=== PATIENT | female | born 1975 | race Two or more races ===

== ENCOUNTER → 2018-11-01 | Outpatient (CLI) | payer BC ==
[~2018-11-01] MED LIST: LEVO50TA5 PO
--- NOTE | 2018-11-01 10:53 | RAD ---
3 view study of the left knee Clinical indications: Fell on left knee 2 days ago. Continued left knee pain. FINDINGS: No acute fracture or dislocation or lytic process is seen. There is moderate degenerative spurring and mild joint space narrowing of the medial tibiofemoral joint compartment. No left knee joint effusion is seen. IMPRESSION: No acute fracture. Electronically signed by: Gurmeet White MD (11/01/2018 10:50 AM) [id number]
== END | disposition home or self-care (01) ==
LOC: RAD 08:01 → MERGE 08:01
PROVIDERS: ATTEND Physician Assistant
DX: M76.892 Other specified enthesopathies of left lower limb, excluding foot (principal)
CPT/HCPCS: 73560

== ENCOUNTER 2020-07-08 11:48 | Emergency (ER) | payer BC ==
[~2020-07-08] VITALS: Ht 167.6 cm; Wt 102.0 kg
--- NOTE | 2020-07-08 12:22 | PHYS DOC ---
Past History Past Medical History: No Pertinent History Past Surgical History: Gastric Bypass, Hysterectomy, Knee Replacement, Other Additional Past Surgical Histo: Thyroid. bilaterla breast. Alcohol Use: None Adult General Chief Complaint Chief Complaint: SHORTNESS OF BREATH HPI HPI Patient is a 45-year-old female presents emergency department with complaints of having a fever of 101 oral temp last night along with feeling chest pressure with her heart beating fast, patient states that she thinks her heart was beating fast because she was having a possible panic attack. Patient states that she has had panic attacks in the past but has not been treated for them. Patient states this morning her chest pressure and shortness of breath have been relieved. Patient reports that she tested positive for the Covid virus on 17 June from a [facility] test and then again tested positive for the COVID- 19 virus last Monday at the local urgent care center. Patient reports that she is requiring a work excuse. Patient also states that she has lost sense of taste and smell since yesterday has chills and reported fever with body aches. Patient denies any nausea vomiting diarrhea or constipation. Patient denies any problems with urination, denies vaginal discharge or STI concerns. Patient reports that she had a hysterectomy in 2017. A partial thyroidectomy in 2006, and a double mastectomy 2017. Patient reports she takes 10 mg Ambien nightly for sleep and 75 mcg of levothyroxine daily. Patient states that she does not feel like she needs to be in the hospital as she does not feel that bad, patient states her main concern of being the emergency department today is to obtain a work excuse. 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 Patient reports being a non-smoker does not use illicit drugs, has an occasional glass of wine on the weekends. Patient denies anybody else in her home having the same symptoms that she. Review of Systems Review of Systems 14 body systems of review of systems have been reviewed. See HPI for pertinent positives and negative responses, otherwise all other systems are negative, nonpertinent or noncontributory. Family History Family History Patient denies any significant medical family history, states both her mother and father are healthy Current Medications Current Medications 75 mcg levothyroxine p.o. daily, 10 mg Ambien nightly for sleep. Allergies Allergies Patient denies any allergies to medications, denies seasonal, food, or environmental allergies. Allergies Coded Allergies Type Severity Reaction Last Updated Verified No Known Drug Allergies 11/07/13 No Physical Exam Physical Exam Constitutional: Well developed, well nourished, no acute distress, non-toxic appearance. HENT: Normocephalic, atraumatic, bilateral external ears normal, oropharynx moist, no oral exudates, nose normal. Eyes: PERRLA, EOMI, conjunctiva normal, no discharge. Neck: Normal range of motion, no tenderness, supple, no stridor. Cardiovascular:Heart rate regular rhythm, no murmur, heart sounds S1-S2. Lungs & Thorax: Bilateral breath sounds clear to auscultation all lung manning. Abdomen: Bowel sounds normal, soft, no tenderness, no masses, no pulsatile masses. Skin: Warm, dry, no erythema, no rash. Back: No tenderness, no CVA tenderness. Extremities: No tenderness, no cyanosis, no clubbing, ROM intact, no edema. Neurologic: Alert and oriented X 3, normal motor function, normal sensory function, no focal deficits noted. Psychologic: Affect normal, judgement normal, mood normal. Current Patient Data Vital Signs Vital Signs Date Time Temp Pulse Resp B/P (MAP) Pulse Ox O2 Delivery O2 Flow Rate FiO2 07/08/20 11:56 98.5 90 16 126/85 (99) 100 Room Air EKG EKG EKG performed at 1248 by house respiratory therapist, shows a normal sinus rhythm without ectopy heart rate 84 bpm regular rate and rhythm with MN interval 0.140, QTc interval 0.448, no acute STEMI, ACS, or cardiac ischemia appreciated, EKG interpreted by ED attending physician Dr. Miles. Radiology/Procedures Radiology/Procedures STATUS: REG ER ORD. PHYSICIAN: CHINYERE GALVAN APRN REASON: SHORT OF BREATH COVID POSITIVE PROCEDURE: CHEST AP ONLY Examination: XR CHEST 1V History: Reason: SHORT OF BREATH COVID POSITIVE / : Comparison/Correlation: 06/04/2017 Findings: Portable erect frontal view the chest was obtained. Heart size and p ulmonary vasculature are normal. No infiltrate or effusion. Upper abdominal surgical clips noted. No pneumothorax. Bony structures unremarkable. Impression: No active disease. Electronically signed by: Debi Penny MD (07/08/2020 12:42 PM) [id number] DICTATED AND SIGNED BY: DEBI PENNY MD DATE: 07/08/20 1242 CC: CHINYERE GALVAN APRN; [facility] ~MTH0 0 Heart Score HEART Score for Chest Pain: HEART Score for Chest Pain Response (Comments) Value History Slighlty/Non-Suspicious 0 ECG Normal 0 Age < 45 0 Risk Factors No Risk Factors 0 Troponin < Normal Limit 0 Total 0 Risk Factors: Risk Factors: DM, Current or recent (<one month) smoker, HTN, HLP, family history of CAD, obesity. Risk Scores: Risk Factors: DM, Current or recent (<one month) smoker, HTN, HLP, family history of CAD, obesity. Course & Med Decision Making Course & Med Decision Making Pertinent Labs and Imaging studies reviewed. (See chart for details) 45-year-old female presents emergency department complaining of having chest pressure and shortness of breath with fever last night. Patient states her main reason for ER visit today is to obtain a work excuse. Patient's vital signs were stable and she was afebrile oral temp, her physical exam was unremarkable, the patient's heart score equals 0, however related to her reported positive testing of Covid 19 virus along with recent chest and pressure shortness of breath a cardiac work-up was initiated in the emergency department along with serum lab work and urinalysis. Pending results at this time. Chest x-ray read by house radiologist interpretation negative for acute pulmonary process. Reexamination of patient found patient to be in no respiratory distress, no chest pains, patient in no apparent distress, patient currently denies any Covid symptoms that she had yesterday, currently denying body aches, chills, decreased taste and decreased smell, patient denies pain or discomfort at this time. Patient's labs unremarkable, patient's urine was not infected. Discussed with patient symptoms of shortness of breath and chest pressure were most likely an anxiety/panic attack, discussed with patient incidental finding of hematuria, the patient does not have any symptoms of urinary tract infection, denies vaginal discharge or STI concerns, recommended patient follow-up with her primary care physician for further evaluation if these types of attacks persist. Discussed with patient COVID-19 virus precautions and safe personal and communi ty practices, patient states that she does not need several days off from work and only needs an excuse for 2 days, patient will be given a work excuse for 2 days off work with return to work without restrictions. Discussed with patient she does not require any written prescriptions. Patient gave verbal understanding of discharge instructions, return to ER precautions and concerns, follow-up with her doctor soon, patient had no further questions or concerns, patient discharged home without incident. Diagnosis COVID-19 virus infection, anxiety about health, a possibility of panic attack, asymptomatic hematuria, this is unlikely a Pulmonary disease pattern, Pulmonary embolism, Pneumothorax, Chronic obstructive pulmonary disease, Asthma exacerbation, Pneumonia, Pleural effusion, Lung mass, Influenza, Bronchitis, Epiglottitis, Cor pulmonale, Cardiac disease, Acute MA, Cardiac tamponade, CHF, Unstable angina, Pericarditis, Valvular heart disease, Anaphylaxis, Anemia, Foreign body aspiration. Dragon Disclaimer Dragon Disclaimer This electronic medical record was generated, in whole or in part, using a voice recognition dictation system. Departure Departure: Impression: Primary Impression: COVID-19 Additional Impressions: Educated about COVID-19 virus infection Counseled about COVID-19 virus infection Anxiety about health Hematuria of unknown etiology Disposition: 01 DC HOME SELF CARE/HOMELESS Condition: GOOD Referrals: [facility] (PCP) Patient Instructions: Anxiety and Panic Attacks Additional Instructions: You have been seen in the emergency department today concerning your chest pressure and shortness of breath and reported fevers at home, you had an extensive cardiac and pulmonary examination and work-up to include labs and x- rays and EKG, there were no indication of any concerning abnormalities, we have discussed this is most likely an anxiety or panic attack, we have discussed that you had a very minute amount of blood in her urine, this should be followed up with your primary care physician, please follow-up with your physician if these symptoms persist, please return to the emergency department for worsening symptoms or other concerns. You have been counseled and given instructions regarding safe practices of the COVID-19 virus. You have been tested for or diagnosed with COVID-19. It is an infection caused by a new type of coronavirus. COVID-19 will cause cold-like or mild flu symptoms in most. It can cause more severe symptoms like problems breathing in some. There is no treatment for COVID-19. The body will clear the infection over time. Self-care will help to ease discomfort. Steps to Take: Self-Care Rest as needed. Healthy habits may help you feel better. Steps include: Choose healthy foods including fruits and vegetables. Drink water throughout the day. Get plenty of sleep each night. If you smoke, try to quit. It may ease breathing. Avoid alcohol. Keep Others Healthy The virus can spread to others. Droplets are released every time you sneeze or cough. The droplets can get into the mouth, nose, or eyes of people near you and lead to infection. To lower the chances of spreading COVID-19 to others: Stay at home until your doctor has said it is safe to leave. If you tested positive this will mean staying isolated until both of the following are true: At least 7 days have passed since the start of illness. You are free of fever for at least 72 hours without the use of medicine. During this time: - Avoid public areas, events, or transportation. Do not return to work or school until your doctor has said it is safe to do so. - Call ahead if you need to go to a medical center. Let them know you may have COVID-19. It will help them guide you where to go. They may also ask you to wear a facemask when you come to the office. - If you call for emergency medical services, let them know you may have COVID- 19. While at home: - Try to avoid close contact with others. Stay about 6 feet away. - If possible, spend most of your time in a separate room from others. - Use a face mask if you will be in close contact with others such as sharing a room or vehicle. - Have someone wipe down common surfaces in the home. Use household transcription typist every day on areas like doorknobs, counters, or sinks. - Cough or sneeze into a tissue. Throw the tissue away right after use. If a tissue is not available, cough or sneeze into your elbow. - Wash your hands often. Wash them after sneezing or coughing. Use soap and water and wash for at least 20 seconds. Alcohol based hand metal cleaner can be used if soap and water is not available. - Do not prepare food for others. Avoid sharing personal items like forks, spoons, or toothbrushes. - Avoid close contact with pets while you are sick. There is no evidence of the virus passing to pets. This is a safety step until more is known about this virus. Isolation can be frustrating. Social interaction can help. Keep in touch with friends and family through phone and tech options. You can still interact with others in your home, just keep a safe distance of about 6 feet. Follow-up: Your doctors office will check in with you to see if there are any changes in your health. You may be asked to keep track of symptoms to share with them. They will also let you know when you are clear to be in public again. Problems to Look Out For: Contact your doctor if your recovery is not going as you expect. Get emergency care if you have problems such as: - Trouble breathing - Nonstop chest pain or pressure - Changes in awareness, confusion, or problems waking - Lips or face have bluish color - Worsening of symptoms If you think you have an emergency, call for emergency medical services right away. As taken from [facility] EMERGENCY DEPARTMENT GENERAL DISCHARGE INSTRUCTIONS Thank you for coming to [facility] (ED) today and trusting us with you care. We trust that you had a positivie experience in our Emergency Department. If you wish to speak to the department management, you may call the director at [phone]. YOUR FOLLOW UP INSTRUCTIONS ARE FOLLOWS: 1. Do you have a private Doctor? If you do not have a private doctor, please ask for a resource list of physicians or clinics that may be able to assist you with follow up care. 2. The Emergency Physician has interpreted your x-rays. The X-Ray specialist will also review them. If there is a change in the findings, you will be notified in 48 hours when at all possible. 3. A lab test or culture has been done, your results will be reviewed and you will be notified if you need a change in treatment. ADDITIONAL INSTRUCTIONS AND INFORMATION: 1. Your care today has been supervised by a physician who is specially trained in emergency care. Many problems require more than one evaluation for a complete diagnosis and treatment. We recommend that you schedule your follow up appointment as recommended to ensure complete treatment of you illness or injury. If you are unable to obtain follow up care and continue to have a problem, or if your condition worsens, we recommend that you return to the ED. 2. We are not able to safely determine your condition over the phone nor are we able to give sound medical advice over the phone. For these safety reasons, if you call for medical advice we will ask you to come to the ED for further evaluation. 3. If you have any questions regarding these discharge instructions please call the ED at [phone]. SAFETY INFORMATION: In the interest of safety, wellness, and injury prevention; we encourage you to wear your sealbelt, if you smoke; quite smoking, and we encourage family to use a protective helmet for bicycling and other sporting events that present an increased risk for head injury. IF YOUR SYMPTOMS WORSEN OR NEW SYMPTOMS DEVELOP, OR YOU HAVE CONCERNS ABOUT YOUR CONDITION; OR IF YOUR CONDITION WORSENS WHILE YOU ARE WAITING FOR YOUR FOLLOW UP APPOINTMENT; EITHER CONTACT YOUR PRIMARY CARE DOCTOR, THE PHYSICIAN WHOSE NAME AND NUMBER YOU WERE GIVEN, OR RETURN TO THE ED IMMEDIATELY. Problem Qualifiers CHINYERE GALVAN APRN Jul 08, 2020 12:22
--- NOTE | 2020-07-08 12:45 | RAD ---
Examination: XR CHEST 1V History: Reason: SHORT OF BREATH COVID POSITIVE / : Comparison/Correlation: 06/04/2017 Findings: Portable erect frontal view the chest was obtained. Heart size and pulmonary vasculature ar e normal. No infiltrate or effusion. Upper abdominal surgical clips noted. No pneumothorax. Bony stru ctures unremarkable. Impression: No active disease. Electronically signed by: Dakotah Rock MD (07/08/2020 12:42 PM) [id number]
[2020-07-08 12:50] LABS: BASO % 1 % (0-3); EOS # 0.1 x10^3/uL (0.0-0.7); EOS % 1 % (0-3); HEMATOCRIT 37.7 % (36.0-47.0); HEMOGLOBIN 12.4 g/dL (12.0-15.5); LYMPH # 1.9 x10^3/uL (1.0-4.8); LYMPH % 32 % (24-48); MEAN CORPUSCULAR HEMOGLOBIN 29 pg (25-35); MEAN CORPUSCULAR HGB CONC 33 g/dL (31-37); MEAN CORPUSCULAR VOLUME 89 fL (79-100); MONO # 0.5 x10^3/uL (0.0-1.1); MONO % 9 % (0-9); NEUT # 3.5 x10^3uL (1.8-7.7); NEUT % 58 % (31-73); PLATELET COUNT 217 x10^3/uL (140-400); RED BLOOD COUNT 4.24 x10^6/uL (3.50-5.40); RED CELL DISTRIBUTION WIDTH 13.7 % (11.5-14.5)
[2020-07-08 13:00] LABS: CALCIUM 10.2 mg/dL (8.5-10.1); CREATININE 0.8 mg/dL (0.6-1.0); GFR 77.9
[2020-07-08 13:05] LABS: ALBUMIN 3.8 g/dL (3.4-5.0); ALBUMIN/GLOBULIN RATIO 1.1 (1.0-1.7); MAGNESIUM 2.3 mg/dL (1.8-2.4); TOTAL BILIRUBIN 0.1 mg/dL (0.2-1.0); TOTAL PROTEIN 7.3 g/dL (6.4-8.2)
[2020-07-08 14:14] LABS: BILIRUBIN,URINE NEG (NEG); CLARITY,URINE CLEAR; COLOR,URINE YELLOW; GLUCOSE,URINE NEG (NEG); NITRITE,URINE NEG (NEG); RBC,URINE 0 /HPF (0-2); UROBILINOGEN,URINE 0.2 mg/dL (0.2 mg/dL); WBC,URINE 0 /HPF (0-4)
[2020-07-08 14:15] LABS: BACTERIA,URINE 0 /HPF (0-FEW); SQUAMOUS EPITHELIAL CELL,UR FEW /LPF
[2020-07-08 14:46] VITALS: BP 119/78
--- NOTE | 2020-07-08 15:27 | EKG ---
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
== END 2020-07-08 14:45 | disposition home or self-care (01) ==
LOC: ER 11:48
DX: U07.1 COVID-19 (principal); F41.9 Anxiety disorder, unspecified; R31.9 Hematuria, unspecified; Z98.84 Bariatric surgery status; Z90.710 Acquired absence of both cervix and uterus
CPT/HCPCS: 36415; 71045; 80053; 81001; 83735; 84484; 85025; 93005; 99285-25

== ENCOUNTER 2020-07-19 15:45 | Emergency (ER) | payer BC ==
[~2020-07-19] VITALS: Ht 165.1 cm; Wt 101.0 kg
[2020-07-19 15:48] VITALS: BP 125/74
--- NOTE | 2020-07-19 16:02 | PHYS DOC ---
Past History Past Medical History: No Pertinent History Past Surgical History: Gastric Bypass, Hysterectomy, Knee Replacement, Other Additional Past Surgical Histo: Thyroid. bilaterla breast. Alcohol Use: None Adult General Chief Complaint Chief Complaint: KNEE INJURY HPI HPI Patient is a 45-year-old female presents emergency department reporting that she fell down 7 steps at approximately 930 this morning. Patient states that she only injured her left knee during this fall. Patient denies hitting her head or losing consciousness. Patient denies back pain. Patient states that she has no other physical complaints or physical concerns. Patient denies any neurological disturbances, denies dizziness, numbness or tingling to her extremities. Review of Systems Review of Systems 14 body systems of review of systems have been reviewed. See HPI for pertinent positives and negative responses, otherwise all other systems are negative, nonpertinent or noncontributory. Allergies Allergies Allergies Coded Allergies Type Severity Reaction Last Updated Verified No Known Drug Allergies 11/07/13 No Physical Exam Physical Exam Constitutional: Well developed, well nourished, no acute distress, non-toxic appearance. No outward signs of physical or emotional abuse or domestic violence abuse. HENT: Normocephalic, atraumatic, bilateral external ears normal, oropharynx moist, no oral exudates, nose normal. Eyes: PERRLA, EOMI, conjunctiva normal, no discharge. Neck: Normal range of motion, no tenderness, supple, no stridor. Cardiovascular:Heart rate regular rhythm, no murmur Lungs & Thorax: Bilateral breath sounds clear to auscultation Abdomen: Bowel sounds normal, soft, no tenderness, no masses, no pulsatile masses. Skin: Warm, dry, no erythema, no rash. Back: No tenderness, no CVA tenderness. Extremities: No tenderness, no cyanosis, no clubbing, ROM intact, no edema. Patient's left knee tender to palpation, limited passive range of motion related to patient's complaint of pain, there is no bruising, no swelling, no deformity, no crepitus noted. No loss of sensation distal to left knee, no edema appreciated, distal cap refill less than 2 seconds, 2+ dorsalis pedis posterior tibial pulses. Neurovascular intact exam Neurologic: Alert and oriented X 3, normal motor function, normal sensory function, no focal deficits noted. [] Psychologic: Affect normal, judgement normal, mood normal. [] EKG EKG [] Radiology/Procedures Radiology/Procedures STATUS: REG ER ORD. PHYSICIAN: CHINYERE GALVAN APRN REASON: FALL, BLUNT TRAUMA PROCEDURE: KNEE LEFT 4V Exam: Left knee 4 views INDICATION: Fall, blunt trauma TECHNIQUE: Frontal, lateral, oblique and sunrise views Comparisons: None FINDINGS: Bone mineralization is normal. No acute or healed fractures. Soft tissues are unremarkable. Joint spaces are well-maintained. IMPRESSION: No acute osseous abnormality. Electronically signed by: Fortunato Colon MD (07/19/2020 5:19 PM) [facility] DICTATED AND SIGNED BY: FORTUNATO COLON MD DATE: 07/19/201717 CC: CHINYERE GALVAN APRN; [facility] ~MTH0 0 Impressions: Left knee sprain Heart Score Risk Factors: Risk Factors: DM, Current or recent (<one month) smoker, HTN, HLP, family history of CAD, obesity. Risk Scores: Risk Factors: DM, Current or recent (<one month) smoker, HTN, HLP, family history of CAD, obesity. Course & Med Decision Making Course & Med Decision Making Pertinent Labs and Imaging studies reviewed. (See chart for details) 45-year-old female reports falling down 7 steps at 930 this morning. Physical exam was unremarkable. Patient had no bruising or contusions that would be consistent with a fall down 7 steps. Patient complained of left knee pain, left knee showed no contusion or bruising or swelling there would be consistent with a fall and blunt injury. Patient had no outward signs of physical or emotional or domestic abuse. Patient reports that she is safe at home and is not being abused by anybody in her home. Patient was given 60 mg IM Toradol for stated 10/10 pain on a 1-10 pain scale. X-ray of the left knee was ordered pending results at this time. X-ray read negative for acute process per house radiologist interpretation. Discussed with patient x-ray findings, RICE therapy, Casey wrap, knee immobilizer, follow-up with creative services specialist, see primary care physician soon, return to ER concerns, patient discharged home without incident Dragon Disclaimer Dragon Disclaimer This electronic medical record was generated, in whole or in part, using a voice recognition dictation system. Departure Departure: Impression: Primary Impression: Left knee sprain Additional Impression: Fall Disposition: 01 DC HOME SELF CARE/HOMELESS Condition: IMPROVED Referrals: [facility] (PCP) Patient Instructions: Fall Prevention and Home Safety, Knee Immobilization, Knee Sprain-Brief, Knee Wraps (Elastic Bandage) and RICE Additional Instructions: You have sprained your knee, please use RICE therapy as we discussed, use knee immobilizer until released by your orthopedic surgeon. Follow-up with your primary care doctor soon for reevaluation of your knee pain return to the e mergency department for worsening symptoms or other concerns. You may use [id number] Tylenol and/or Motrin for aches and pains. EMERGENCY DEPARTMENT GENERAL DISCHARGE INSTRUCTIONS Thank you for coming to [facility] (ED) today and trusting us with you care. We trust that you had a positivie experience in our Emergency Department. If you wish to speak to the department management, you may call the director at [phone]. YOUR FOLLOW UP INSTRUCTIONS ARE FOLLOWS: 1. Do you have a private Doctor? If you do not have a private doctor, please ask for a resource list of physicians or clinics that may be able to assist you with follow up care. 2. The Emergency Physician has interpreted your x-rays. The X-Ray specialist will also review them. If there is a change in the findings, you will be notified in 48 hours when at all possible. 3. A lab test or culture has been done, your results will be reviewed and you will be notified if you need a change in treatment. ADDITIONAL INSTRUCTIONS AND INFORMATION: 1. Your care today has been supervised by a physician who is specially trained in emergency care. Many problems require more than one evaluation for a complete diagnosis and treatment. We recommend that you schedule your follow up appointment as recommended to ensure complete treatment of you illness or injury. If you are unable to obtain follow up care and continue to have a problem, or if your condition worsens, we recommend that you return to the ED. 2. We are not able to safely determine your condition over the phone nor are we able to give sound medical advice over the phone. For these safety reasons, if you call for medical advice we will ask you to come to the ED for further evaluation. 3. If you have any questions regarding these discharge instructions please call the ED at [phone]. SAFETY INFORMATION: In the interest of safety, wellness, and injury prevention; we encourage you to wear your sealbelt, if you smoke; quite smoking, and we encourage family to use a protective helmet for bicycling and other sporting events that present an increased risk for head injury. IF YOUR SYMPTOMS WORSEN OR NEW SYMPTOMS DEVELOP, OR YOU HAVE CONCERNS ABOUT YOUR CONDITION; OR IF YOUR CONDITION WORSENS WHILE YOU ARE WAITING FOR YOUR FOLLOW UP APPOINTMENT; EITHER CONTACT YOUR PRIMARY CARE DOCTOR, THE PHYSICIAN WHOSE NAME AND NUMBER YOU WERE GIVEN, OR RETURN TO THE ED IMMEDIATELY. Problem Qualifiers Primary Impression: Left knee sprain Encounter type: initial encounter Involved ligament of knee: unspecified ligament Qualified Codes: S83.92XA - Sprain of unspecified site of left knee, initial encounter Additional Impression: Fall Encounter type: initial encounter Qualified Codes: W19.XXXA - Unspecified fall, initial encounter CHINYERE GALVAN APRN Jul 19, 2020 16:02
[2020-07-19] MEDS ORDERED: KETOROLAC 60 MG/2 ML VIAL. IM ONE (16:15)
--- NOTE | 2020-07-19 17:21 | RAD ---
Exam: Left knee 4 views INDICATION: Fall, blunt trauma TECHNIQUE: Frontal, lateral, oblique and sunrise views Comparisons: None FINDINGS: Bone mineralization is normal. No acute or healed fractures. Soft tissues are unremarkable. Joint spa makc are well-maintained. IMPRESSION: No acute osseous abnormality. Electronically signed by: Fortunato Singh MD (07/19/2020 5:19 PM) [facility]
== END 2020-07-19 17:54 | disposition home or self-care (01) ==
LOC: ER 15:45
DX: S83.92XA Sprain of unspecified site of left knee, initial encounter (principal); Z98.84 Bariatric surgery status; W10.8XXA Fall (on) (from) other stairs and steps, initial encounter; Y93.89 Activity, other specified; Y92.89 Other specified places as the place of occurrence of the external cause; Y99.8 Other external cause status
CPT/HCPCS: 29505; 73564; 96372; 99283; J1885

== ENCOUNTER → 2020-09-15 | Outpatient (CLI) | payer BC ==
[~2020-09-15] MED LIST changes: +IOHEXOL 240 MG/ML 50ML VIAL. ONE; +IOHEXOL 300 MG/ML 75 ML VIAL. IV ONE
--- NOTE | 2020-09-15 20:35 | RAD ---
Exam: CT of abdomen and pelvis with contrast INDICATION: Lower abdominal pain, history of cholecystectomy TECHNIQUE: Sequential axial images through the abdomen and pelvis obtained following the administrati on of 75 mL of Omni 300 IV contrast. Sagittal and coronal reformatted images were reconstructed from the axial data and reviewed. Comparisons: None FINDINGS: Heart size is normal. No pericardial visualized lung bases are clear. No pleural effusion. Liver, spleen, pancreas and adrenals are unremarkable. Gallbladder is absent. No perinephric inflammation or hydronephrosis. No renal or ureteral calculi are identified. Bladder is distended. Small focus of air noted within the bladder which is otherwise thin-walled. [place] lawson is absent. No abnormal adnexal mass. Large and small bowel are unremarkable. Postoperative changes at the stomach noted. Appendix is nonid entified. No free intra-abdominal air or fluid. No obstruction. Abdominal aorta has a normal course and caliber. Abdominal vasculature is patent. No enlarged intra-abdominal lymph nodes are identified. No suspicious osseous lesions or acute fractures. IMPRESSION: Small focus of air noted within the bladder. Correlate for recent instrumentation. Correlate with uri nalysis for infection. Exposure: One or more of the following in the visualized dose reduction techniques were utilized for this examination: 1. Automated exposure control 2. Adjustment of the MA and/or KV according to patient size 3. Use of iterative of reconstructive technique Electronically signed by: Fortunato Singh MD (09/15/2020 8:33 PM) [facility]
== END ==
LOC: CT 18:48
PROVIDERS: ATTEND Nurse Practitioner Family
DX: N32.89 Other specified disorders of bladder (principal); Z90.49 Acquired absence of other specified parts of digestive tract
CPT/HCPCS: 74177; Q9967

== ENCOUNTER 2020-11-13 14:02 | Emergency (ER) | payer BC, OTHER ==
[~2020-11-13 14:02] MED LIST changes: -IOHEXOL 240 MG/ML 50ML VIAL. ONE; -IOHEXOL 300 MG/ML 75 ML VIAL. IV ONE
[2020-11-13] MEDS ORDERED: HYDROcodone/APAP 5/325MG 1 TAB TABLET PO ONE (14:45)
[2020-11-13] MEDS ORDERED: IBUPROFEN 600 MG TABLET. PO ONE (14:45)
--- NOTE | 2020-11-13 15:08 | RAD ---
Right knee 4 views. HISTORY: Fall, blunt trauma 4 views were taken of the right knee. There is no fracture or acute osseous abnormality. There is min imal spurring medially. There is no definite joint effusion. IMPRESSION: 1. No acute fracture noted in the right knee. Electronically signed by: Len Bennett MD (11/13/2020 3:05 PM) [facility]
--- NOTE | 2020-11-13 15:49 | PHYS DOC ---
Past History Past Medical History: No Pertinent History Past Surgical History: Gastric Bypass, Hysterectomy, Knee Replacement, Other Additional Past Surgical Histo: Thyroid. bilaterla breast. Alcohol Use: None Adult General Chief Complaint Chief Complaint: KNEE INJURY HPI HPI Patient is a 45-year-old female who presents emergency department complaining of right knee pain after a trip and fall at work today. Patient states this happened at approximately 2:00 this afternoon. Patient reports a 10/10 on a 1- 10 pain scale. Patient states she stumbled over a chair and landed on her right knee. Patient states it hurts to ambulate, has not taken any medications for this pain, states her employer brought her here for an evaluation in the ER today. Patient denies any other physical complaints or physical concerns. Patient states she had a hysterectomy in 2016, takes prescription Ambien for sleep at night along with 75 mcg of levothyroxine for hypothyroidism, sees PATRICIA Musa for primary care. Patient denies any other physical complaints or physical concerns. Review of Systems Review of Systems 14 body systems of review of systems have been reviewed. See HPI for pertinent positives and negative responses, otherwise all other systems are negative, nonpertinent or noncontributory. Current Medications Current Medications Current Medications Medications (Trade) Dose Ordered Sig/Neli Start Time Stop Time Status Last Admin Dose Admin Acetaminophen/ Hydrocodone Bitart (Lortab 5/325) 1 tab 1X ONCE 11/13/20 14:45 11/13/20 14:46 DC 11/13/20 15:42 1 TAB Ibuprofen (Motrin) 600 mg 1X ONCE 11/13/20 14:45 11/13/20 14:46 DC 11/13/20 15:43 600 MG Allergies Allergies Allergies Coded Allergies Type Severity Reaction Last Updated Verified No Known Drug Allergies 11/07/13 No Physical Exam Physical Exam Constitutional: Well developed, well nourished, no acute distress, non-toxic appearance. 45-year-old female no apparent distress. Patient was ambulatory to emergency exam room favoring right lower extremity. HENT: Normocephalic, atraumatic, bilateral external ears normal, oropharynx moist, no oral exudates, nose normal. Eyes: No obvious drainage from eyes, conjunctivae appear normal, patient tracking normally. Neck: Normal range of motion, no tenderness, supple, no stridor. Cardiovascular: No cyanosis appreciated, distal cap refill less than 2 seconds. Lungs & Thorax: Patient no obvious respiratory distress, no audible adventitious lung sounds appreciated. Skin: Warm, dry, no erythema, no rash. Back: No tenderness, no CVA tenderness. Extremities: No tenderness, no cyanosis, no clubbing, ROM intact, no edema. Except for right knee, pain to medial lateral side to palpation, limited passive range of motion of right knee related to pain, no swelling appreciated, no deformity appreciated, no contusions or areas of ecchymosis appreciated, distal cap refill less than 2 seconds, 2+ dorsalis pedis/posterior tibial pulse. Negative Prosper's test, negative Kang's test, negative posterior drawer test, negative valgus stress, negative varus stress, no visually acute injury of knee appreciated for physical examination. Neurologic: Alert and oriented X 3, normal motor function, normal sensory function, no focal deficits noted. [] Psychologic: Affect normal, judgement normal, mood normal. [] EKG EKG [] Radiology/Procedures Radiology/Procedures PATIENT: JAMAL CONCEPCIONOUNT: [id number] : 1975 LOCATION: ER AGE: 45 SEX: F EXAM STATUS: REG ER ORD. PHYSICIAN: CHINYERE GALVAN APRN REASON: FALL, BLUNT TRAUMA PROCEDURE: KNEE RIGHT 4V Right knee 4 views. HISTORY: Fall, blunt trauma 4 views were taken of the right knee. There is no fracture or acute osseous abnormality. There is minimal spurring medially. There is no definite joint effusion. IMPRESSION: 1. No acute fracture noted in the right knee. Electronically signed by: Len Bennett MD (11/13/2020 3:05 PM) [facility] DICTATED AND SIGNED BY: LEN BENNETT MD DATE: 11/13/20 1504 CC: CHINYERE GALVAN APRN; [facility] ~MTH0 0 Heart Score C/O Chest Pain: No Risk Factors: Risk Factors: DM, Current or recent (<one month) smoker, HTN, HLP, family history of CAD, obesity. Risk Scores: Risk Factors: DM, Current or recent (<one month) smoker, HTN, HLP, family history of CAD, obesity. Course & Med Decision Making Course & Med Decision Making Pertinent Labs and Imaging studies reviewed. (See chart for details) 45-year-old female, vital signs reviewed, presents emergency department concerning right knee pain after a stumble and fall at work today at approxim ately 2:00. Patient's physical examination concerning for possible contusion of right knee versus traumatic bony process. An x-ray of the right knee was ordered. Patient was given 1 tablet 600 mg ibuprofen, 1 tablet 5/325 mg Harrison p.o. for 10/10 in a 1-10 pain scale. X-ray negative per house radiologist interpretation, upon reexamination of the patient, patient states that she was just given her oral pain medications just moments before and has had no change in pain status. Discussed with patient x-ray findings, will apply Casey wrap. Discussed with patient RICE therapy. Will give work excuse for today and tomorrow. Patient is to follow with her primary care for ongoing knee pain. Patient gave verbal understanding of discharge home instructions, RICE therapy, follow-up with primary care on Monday, return to ER precautions or concerns, patient was discharged home without incident. Diagnosis right knee contusion. Dragon Disclaimer Dragon Disclaimer This electronic medical record was generated, in whole or in part, using a voice recognition dictation system. Departure Departure: Impression: Primary Impression: Contusion of right knee Disposition: 01 HOME / SELF CARE / HOMELESS Condition: GOOD Referrals: [facility] (PCP) Patient Instructions: Elastic Bandage and RICE Additional Instructions: You were seen today in the emergency department for right knee pain after a fall. We performed an x-ray that did not show any concerning findings or any broken bones. We have discussed RICE therapy, rest, ice, compression, elevation. The ED nurse today has applied an Casey wrap to your right knee. I have given you work excuse for today and tomorrow. Please take this time to rest and elevate your right knee. Please follow-up with your primary care provider PATRICIA Musa for ongoing knee pains. Return to the emergency department for worsening symptoms or other concerns. EMERGENCY DEPARTMENT GENERAL DISCHARGE INSTRUCTIONS Thank you for coming to [facility] (ED) today and trusting us with you care. We trust that you had a positivie experience in our Emergency Department. If you wish to speak to the department management, you may call the director at [phone]. YOUR FOLLOW UP INSTRUCTIONS ARE FOLLOWS: 1. Do you have a private Doctor? If you do not have a private doctor, please ask for a resource list of physicians or clinics that may be able to assist you with follow up care. 2. The Emergency Physician has interpreted your x-rays. The X-Ray specialist will also review them. If there is a change in the findings, you will be notified in 48 hours when at all possible. 3. A lab test or culture has been done, your results will be reviewed and you will be notified if you need a change in treatment. ADDITIONAL INSTRUCTIONS AND INFORMATION: 1. Your care today has been supervised by a physician who is specially trained in emergency care. Many problems require more than one evaluation for a complete diagnosis and treatment. We recommend that you schedule your follow up appointment as recommended to ensure complete treatment of you illness or injury. If you are unable to obtain follow up care and continue to have a problem, or if your condition worsens, we recommend that you return to the ED. 2. We are not able to safely determine your condition over the phone nor are we able to give sound medical advice over the phone. For these safety reasons, if you call for medical advice we will ask you to come to the ED for further evaluation. 3. If you have any questions regarding these discharge instructions please call the ED at [phone]. SAFETY INFORMATION: In the interest of safety, wellness, and injury prevention; we encourage you to wear your sealbelt, if you smoke; quite smoking, and we encourage family to use a protective helmet for bicycling and other sporting events that present an increased risk for head injury. IF YOUR SYMPTOMS WORSEN OR NEW SYMPTOMS DEVELOP, OR YOU HAVE CONCERNS ABOUT YOUR CONDITION; OR IF YOUR CONDITION WORSENS WHILE YOU ARE WAITING FOR YOUR FOLLOW UP APPOINTMENT; EITHER CONTACT YOUR PRIMARY CARE DOCTOR, THE PHYSICIAN WHOSE NAME AND NUMBER YOU WERE GIVEN, OR RETURN TO THE ED IMMEDIATELY. Scripts Ibuprofen (IBUPROFEN) 600 Mg Tablet 600 MG PO TID PRN PRN for PAIN, #20 TAB 0 Refills Prov: CHINYERE GALVAN FELT CARBONIZER 11/13/20 Problem Qualifiers Primary Impression: Contusion of right knee Encounter type: initial encounter Qualified Codes: S80.01XA - Contusion of right knee, initial encounter CHINYERE GALVAN APRN Nov 13, 2020 15:49
[2020-11-13] MEDS ORDERED: IBUP600T16 PO (16:07)
== END 2020-11-13 16:23 | disposition home or self-care (01) ==
LOC: ER 14:02
DX: S80.01XA Contusion of right knee, initial encounter (principal); E03.9 Hypothyroidism, unspecified; W01.0XXA Fall on same level from slipping, tripping and stumbling without subsequent striking against object, initial encounter; Y93.89 Activity, other specified; Y92.89 Other specified places as the place of occurrence of the external cause; Y99.0 Civilian activity done for income or pay
CPT/HCPCS: 73564; 99283

== ENCOUNTER 2020-12-23 18:37 | Emergency (ER) | payer BC, OTHER ==
[~2020-12-23] VITALS: Ht 165.1 cm; Wt 102.0 kg
[2020-12-23 18:37] VITALS: BP 127/71
[~2020-12-23 18:37] MED LIST changes: +IBUP600T16 PO
[2020-12-23] MEDS ORDERED: IV NORMAL SALINE 1,000ML 1,000 ML IV ONE (19:00)
[2020-12-23] MEDS ORDERED: ONDANSETRON PF 4 MG/2 ML VIAL. IVP ONE (19:00)
[2020-12-23] MEDS ORDERED: MORPHINE SULFATE 2 MG/ML DISP.SYRIN. IV ONE (19:15)
[2020-12-23] MEDS ORDERED: IOHEXOL 300 MG/ML 75 ML VIAL. IV ONE (19:15)
[2020-12-23 19:30] LABS: BASO % 1 % (0-3); EOS # 0.4 x10^3/uL (0.0-0.7); EOS % 7 % (0-3); HEMATOCRIT 37.7 % (36.0-47.0); HEMOGLOBIN 12.4 g/dL (12.0-15.5); LYMPH % 35 % (24-48); MEAN CORPUSCULAR HEMOGLOBIN 30 pg (25-35); MEAN CORPUSCULAR HGB CONC 33 g/dL (31-37); MEAN CORPUSCULAR VOLUME 90 fL (79-100); MONO # 0.8 x10^3/uL (0.0-1.1); MONO % 13 % (0-9); NEUT # 2.6 x10^3uL (1.8-7.7); NEUT % 44 % (31-73); PLATELET COUNT 231 x10^3/uL (140-400); RED BLOOD COUNT 4.19 x10^6/uL (3.50-5.40); RED CELL DISTRIBUTION WIDTH 13.6 % (11.5-14.5); WHITE BLOOD COUNT 5.8 x10^3/uL (4.0-11.0)
--- NOTE | 2020-12-23 19:38 | RAD ---
CT ABDOMEN+PELVIS W History: RLQ abdominal pain Comparison: 09/15/2020 Technique: After administration of intravenous contrast, helical CT of the abdomen and pelvis was per formed from the lung bases through the ischial tuberosities. Coronal and sagittal reconstructions wer e obtained. 75 mL of Omnipaque 350 were used. One or more of the following dose reduction techniques were utilized: Automated exposure control (AEC), Adjustment of mA and/or kV according to patient size , Use of iterative reconstruction technique such as ASiR, CT scan done according to ALARA and image g ently/image wisely Abdomen Findings: The visualized lung bases are clear. The liver, pancreas, spleen, and bilateral adrenal glands are normal. Cholecystectomy. Symmetric renal enhancement. There is no focal renal mass. There is no hydronephrosis. Postsurgical changes of sleeve gastrectomy The visualized loops of small bowel are normal. The visual ized loops of large bowel are normal. There is no evidence of bowel obstruction. Appendix is normal. There is no free fluid. There is no mesenteric or retroperitoneal adenopathy. The abdominal aorta is normal in caliber. Pelvis Findings: Urinary bladder is decompressed. Hysterectomy. No pelvic free fluid. There is no pelvic or inguinal a denopathy. There is no acute bony abnormality. IMPRESSION: 1. No acute findings. Normal appendix. 2. Cholecystectomy. Hysterectomy. Electronically signed by: Dustin Hsu MD (12/23/2020 7:35 PM) [facility]
[2020-12-23 19:42] LABS: BILIRUBIN,URINE NEG (NEG); CLARITY,URINE CLEAR; COLOR,URINE YELLOW; GLUCOSE,URINE NEG (NEG); NITRITE,URINE NEG (NEG); UROBILINOGEN,URINE 0.2 mg/dL (0.2 mg/dL)
[2020-12-23 19:43] LABS: BACTERIA,URINE 0 /HPF (0-FEW); RBC,URINE 0 /HPF (0-2); SQUAMOUS EPITHELIAL CELL,UR OCC /LPF; WBC,URINE 0 /HPF (0-4)
[2020-12-23 19:43] LABS: CREATININE 0.8 mg/dL (0.6-1.0); GFR 77.9; POTASSIUM 3.4 mmol/L (3.5-5.1)
[2020-12-23] MEDS ORDERED: CONTRAST GIVEN. MC PRN (19:45)
[2020-12-23 19:49] LABS: ALBUMIN 3.6 g/dL (3.4-5.0); ALBUMIN/GLOBULIN RATIO 0.9 (1.0-1.7); TOTAL BILIRUBIN 0.2 mg/dL (0.2-1.0); TOTAL PROTEIN 7.6 g/dL (6.4-8.2)
--- NOTE | 2020-12-23 19:50 | PHYS DOC ---
Past History Past Medical History: No Pertinent History Past Surgical History: Gastric Bypass, Hysterectomy, Knee Replacement, Other Additional Past Surgical Histo: Thyroid. bilaterla breast. Alcohol Use: None General Adult EDM: Chief Complaint: ABDOMINAL PAIN HPI: HPI: 45-year-old female presents with lower abdominal pain. This pain started yesterday. It was mild. Today she is having waves of pain that she describes as an intense cramping of moderate level. These episodes last for 10 to 15 minutes. The episodes just keep happening every so often without warning or pattern. The patient has had decreased appetite over the same timeframe. She denies dysuria or increased urinary frequency. No diarrhea. She has had some nausea and an episode of vomiting. She denies fever or chills. Review of Systems: Review of Systems: Constitutional: Denies fever or chills Eyes: Denies change in visual acuity HENT: Denies nasal congestion or sore throat Respiratory: Denies cough or shortness of breath Cardiovascular: Denies chest pain or edema GI: Right lower quadrant and suprapubic abdominal pain, nausea, vomiting. denies bloody stools or diarrhea : Denies dysuria Musculoskeletal: Denies back pain or joint pain Integument: Denies rash Neurologic: Denies headache, focal weakness or sensory changes Endocrine: Denies polyuria or polydipsia Lymphatic: Denies swollen glands Psychiatric: Denies depression or anxiety Current Medications: Current Meds: Current Medications Medications (Trade) Dose Ordered Sig/Neli Start Time Stop Time Status Last Admin Dose Admin Info (Do NOT chart on this entry -- for MONITORING) 1 each PRN DAILY PRN 12/23/20 19:45 12/25/20 19:44 Iohexol (Omnipaque 300 Mg/ml) 75 ml 1X ONCE 12/23/20 19:15 12/23/20 19:18 DC 12/23/20 19:22 75 ML Morphine Sulfate (Morphine 2mg Syringe) 2 mg 1X ONCE 12/23/20 19:15 12/23/20 19:18 DC Ondansetron HCl (Zofran) 4 mg 1X ONCE 12/23/20 19:00 12/23/20 19:01 DC Sodium Chloride 1,000 ml @ 1,000 mls/hr 1X ONCE 12/23/20 19:00 12/23/20 19:59 Allergies: Allergies: Allergies Coded Allergies Type Severity Reaction Last Updated Verified No Known Drug Allergies 11/07/13 No Physical Exam: PE: Constitutional: Well developed, well nourished, no acute distress, non-toxic appearance. [] HENT: Normocephalic, atraumatic, bilateral external ears normal, oropharynx moist, no oral exudates, nose normal. [] Eyes: PERRLA, EOMI, conjunctiva normal, no discharge. [] Neck: Normal range of motion, no tenderness, supple, no stridor. [] Cardiovascular: Heart rate regular rhythm, no murmur [] Lungs & Thorax: Bilateral breath sounds clear to auscultation [] Abdomen: Bowel sounds normal, soft, moderate right lower quadrant and suprapubic tenderness, no masses, no pulsatile masses. [] Skin: Warm, dry, no erythema, no rash. [] Back: No tenderness, no CVA tenderness. [] Extremities: No tenderness, no cyanosis, no clubbing, ROM intact, no edema. [] Neurologic: Alert and oriented X 3, normal motor function, normal sensory function, no focal deficits noted. [] Psychologic: Affect normal, judgement normal, mood normal. [] Current Patient Data: Labs: Laboratory Tests Test 12/23/20 18:50 White Blood Count 5.8 x10^3/uL (4.0-11.0) Red Blood Count 4.19 x10^6/uL (3.50-5.40) Hemoglobin 12.4 g/dL (12.0-15.5) Hematocrit 37.7 % (36.0-47.0) Mean Corpuscular Volume 90 fL (79-100) Mean Corpuscular Hemoglobin 30 pg (25-35) Mean Corpuscular Hemoglobin Concent 33 g/dL (31-37) Red Cell Distribution Width 13.6 % (11.5-14.5) Platelet Count 231 x10^3/uL (140-400) Neutrophils (%) (Auto) 44 % (31-73) Lymphocytes (%) (Auto) 35 % (24-48) Monocytes (%) (Auto) 13 % (0-9) H Eosinophils (%) (Auto) 7 % (0-3) H Basophils (%) (Auto) 1 % (0-3) Neutrophils # (Auto) 2.6 x10^3uL (1.8-7.7) Lymphocytes # (Auto) 2.0 x10^3/uL (1.0-4.8) Monocytes # (Auto) 0.8 x10^3/uL (0.0-1.1) Eosinophils # (Auto) 0.4 x10^3/uL (0.0-0.7) Basophils # (Auto) 0.0 x10^3/uL (0.0-0.2) Urine Collection Type Unknown Urine Color Yellow Urine Clarity Clear Urine pH 6.0 Urine Specific [place] 1.025 Urine Protein Neg (NEG-TRACE) Urine Glucose (UA) Neg mg/dL (NEG) Urine Ketones (Stick) Trace mg/dL (NEG) Urine Blood Neg (NEG) Urine Nitrite Neg (NEG) Urine Bilirubin Neg (NEG) Urine Urobilinogen Dipstick 0.2 mg/dL (0.2 mg/dL) Urine Leukocyte Esterase Neg (NEG) Urine RBC 0 /HPF (0-2) Urine WBC 0 /HPF (0-4) Urine Squamous Epithelial Cells Occ /LPF Urine Bacteria 0 /HPF (0-FEW) EKG: EKG: [] Radiology/Procedures: Radiology/Procedures: [] Heart Score: C/O Chest Pain: N/A Risk Factors: Risk Factors: DM, Current or recent (<one month) smoker, HTN, HLP, family history of CAD, obesity. Risk Scores: Score 0 - 3: 2.5% MACE over next 6 weeks - Discharge Home Score 4 - 6: 20.3% MACE over next 6 weeks - Admit for Clinical Observation Score 7 - 10: 72.7% MACE over next 6 weeks - Early Invasive Strategies Course & Med Decision Making: Course & Med Decision Making Pertinent Labs and Imaging studies reviewed. (See chart for details) The patient abdominal CT is negative for acute findings. See official read for more details. Her CBC is unremarkable. CMP is unremarkable. Urinalysis is negative for infection. The patient was given a liter normal saline, 2 mg of morphine, and Zofran. Have a cause for the patient's discomfort. She does have moderate stool volume but not excessive constipation. She has had a total hysterectomy. I discussed all the results with the patient. She states that the pain is manageable and she would like to go home. I will give her Pepcid and high-dose MiraLAX prior to discharge. She is hoping that bowel movement will help her to feel better. If her condition worsens she will return the emergency room. She is stable for discharge at this time. [] Dragon Disclaimer: Dragon Disclaimer: This electronic medical record was generated, in whole or in part, using a voice recognition dictation system. Departure Departure: Impression: Primary Impression: Abdominal pain Qualified Codes: R10.30 - Lower abdominal pain, unspecified Additional Impression: Constipation by delayed colonic transit Disposition: HOME / SELF CARE / HOMELESS Condition: STABLE Referrals: FALLON PRICE (PCP) Patient Instructions: Abdominal Pain, [id number], Constipation, Adult, [id number] GENESIS YAN DO Dec 23, 2020 19:50
[2020-12-23] MEDS ORDERED: POLYETHYLENE GLYCOL 3350 17 GM PACKET. PO ONE (21:00)
[2020-12-23] MEDS ORDERED: FAMOTIDINE 20 MG/2 ML VIAL IVP ONE (21:00)
== END 2020-12-23 21:17 | disposition home or self-care (01) ==
LOC: ER 18:37
DX: K59.01 Slow transit constipation (principal); R10.31 Right lower quadrant pain; R11.2 Nausea with vomiting, unspecified
CPT/HCPCS: 36415; 74177; 80053; 81001; 85025; 96361; 96374; 96375; 99285; J2270; J2405; J3490; J7030; Q9967